=== PATIENT | female | born 1965 | race Caucasian/White ===

== ENCOUNTER → 2016-08-19 | Outpatient (CLI) | payer BC ==
--- NOTE | 2016-08-20 09:40 | MM ---
Reason for exam: screening (asymptomatic). Last mammogram was performed 2 years ago. History: Patient had first child at age 31. Physical Findings: A clinical breast exam by your physician is recommended on an annual basis and results should be correlated with mammographic findings. MG Screening Mammo w CAD Bilateral CC and MLO view(s) were taken. Prior study comparison: August 17, 2014, bilateral MG screening mammo w CAD. The breast tissue is heterogeneously dense. This may lower the sensitivity of mammography. There is no discrete abnormality. ASSESSMENT: Negative, BI-RAD 1 RECOMMENDATION: Routine screening mammogram of both breasts in 1 year.
== END | disposition home or self-care (01) ==
LOC: RADMAMWWP 09:56
PROVIDERS: ATTEND Family Medicine
DX: Z12.31 Encounter for screening mammogram for malignant neoplasm of breast (principal)

== ENCOUNTER → 2017-03-18 | Outpatient (CLI) | payer BC ==
--- NOTE | 2017-03-18 21:33 | MR ---
EXAMINATION TYPE: MR knee LT wo con DATE OF EXAM: 03/18/2017 COMPARISON: NONE HISTORY: 52 year-old female left knee pain and swelling TECHNIQUE: Multiplanar, multisequence imaging of the left knee is performed without IV contrast. FINDINGS: The ACL, PCL, MCL, and LCL complex are intact. Medial meniscus is intact. Mild diffuse thinning of medial compartment articular cartilage volume tho ugh a focal severe cartilage loss along the posterior weightbearing aspect of the medial femoral cond yle measuring approximately 7 mm AP dimension, sagittal image 20. There is underlying focal bone sharath ow edema. The lateral meniscus is intact. There is mild diffuse thinning of lateral compartment articular carti david volume. Moderate irregular cartilage fissuring along the patellar facets. Extensor mechanism is intact. Nonspecific mild anterior cutaneous soft tissue swelling. Trace knee joint effusion. No significant Montes's cyst. Normal popliteal artery anatomy and muscle bulk. No suspicious bone marrow replacement. IMPRESSION: 1. Focal severe cartilage defect measuring 7 mm AP along the posterior weightbearing aspect of the me dial femoral condyle with underlying reactive marrow signal changes. 2. Otherwise, there is mild diffuse thinning of bicompartmental articular cartilage volume. 3. Moderate irregular cartilage fissuring along the patellar facets.
== END | disposition home or self-care (01) ==
LOC: RADMRIMAIN 17:02
PROVIDERS: ATTEND Orthopaedic Surgery
DX: M94.8X6 Other specified disorders of cartilage, lower leg (principal); M25.562 Pain in left knee

== ENCOUNTER → 2018-06-19 | Outpatient (CLI) | payer BC ==
--- NOTE | 2018-06-23 07:48 | MM ---
Reason for exam: screening (asymptomatic). Last mammogram was performed 1 year and 10 months ago. History: Patient had first child at age 31. Physical Findings: A clinical breast exam by your physician is recommended on an annual basis and results should be correlated with mammographic findings. MG Screening Mammo w CAD Bilateral CC and MLO view(s) were taken. XCCL view(s) were taken of the right breast. Prior study comparison: August 19, 2016, bilateral MG screening mammo w CAD. August 17, 2014, bilateral MG screening mammo w CAD. The breast tissue is heterogeneously dense. This may lower the sensitivity of mammography. Finding: There is an enlarging 5 mm circumscribed round mass located 6 cm from the nipple in the upper outer quadrant of the right breast. New finding since August 17, 2014. ASSESSMENT: Incomplete: need additional imaging evaluation, BI-RAD 0 RECOMMENDATION: Ultrasound of the right breast. [facility] will attempt to contact patient to return for ultrasound.
== END | disposition home or self-care (01) ==
LOC: RADMAMWWP 13:04
PROVIDERS: ATTEND Family Medicine
DX: Z12.31 Encounter for screening mammogram for malignant neoplasm of breast (principal)
CPT/HCPCS: 77067

== ENCOUNTER → 2018-07-07 | Outpatient (CLI) | payer BC ==
--- NOTE | 2018-07-08 08:15 | USB ---
Reason for exam: additional evaluation requested from abnormal screening. History: Patient had first child at age 31. Physical Findings: Nurse Summary: right breast 12 o'clock palpable 0.5 x 0.5cm, tender, movable (nurse ts). US Breast Workup Limited RT Right complete breast ultrasound includes all four quadrants, the retroareolar region and axilla. Finding demonstrates a 0.5 x 0.4 x 0.4cm cystic cluster at 9 o'clock. These results were verbally communicated with the patient and result sheet given to the patient on 07/07/18. ASSESSMENT: Benign, BI-RAD 2 RECOMMENDATION: Return to routine screening mammogram schedule for both breasts.
== END | disposition home or self-care (01) ==
LOC: RADUSWWP 14:46
PROVIDERS: ATTEND Family Medicine
DX: R92.8 Other abnormal and inconclusive findings on diagnostic imaging of breast (principal)

== ENCOUNTER 2018-12-09 10:11 | Day surgery (SDC) | payer BC ==
[2018-12-08 08:36] VITALS: BMI 28.3
[~2018-12-09 10:11] MED LIST: LACTATED RINGERS 1,000 ML IV SCH; LIDOCAINE 1% 20 ML VIAL (10MG/ML) FOR IV START INTRADERMA PRN
[2018-12-09 10:42] VITALS: RESP 16; TEMP 97.6
[2018-12-09] MEDS ORDERED: PROPOFOL 10 MG/ML 20 ML VIAL IV ONE (11:38)
--- NOTE | 2018-12-09 11:55 | P.PCN ---
Date of Procedure: 12/09/18 Procedure(s) Performed: BRIEF HISTORY: Patient is a 53-year-old pleasant female, scheduled for an elective colonoscopy as a part of evaluation of positive cologuard. PROCEDURE PERFORMED: Colonoscopy. PREOPERATIVE DIAGNOSIS: Positive cologuard. IV sedation per Anesthesia. PROCEDURE: After informed consent was obtained, the patient, was brought into the endoscopy unit. IV sedation was administered by Anesthesia under continuous monitoring. Digital rectal examination was normal. Initially the Olympus CF-160 flexible video colonoscope was then inserted in the rectum, gradually advanced into the cecum without any difficulty. Careful examination was performed as the scope was gradually being withdrawn. Ileocecal valve and the appendiceal orifice were visualized and appeared normal. Prep was excellent. Mucosa of the cecum, ascending colon, transverse colon, descending colon, sigmoid colon, and rectum appeared normal. Scattered diverticulosis seen. Retroflexion was performed in the rectum and no lesions were seen. The patient tolerated the procedure well. IMPRESSION: Normal-appearing colon from rectum to cecum with no evidence of colorectal neoplasia . Scattered diverticulosis. RECOMMENDATIONS: Findings of this examination were discussed with the patient as well as her family. She was advised to have a repeat screening colonoscopy in .
[2018-12-09 12:20] VITALS: BP 119/80; PULSE 61
== END 2018-12-09 13:16 | disposition home or self-care (01) ==
LOC: ORWHC2ENDO 10:11
PROVIDERS: ATTEND Internal Medicine Gastroenterology
DX: R19.5 Other fecal abnormalities (principal); K57.90 Diverticulosis of intestine, part unspecified, without perforation or abscess without bleeding; E66.9 Obesity, unspecified; Z68.28 Body mass index [BMI] 28.0-28.9, adult
CPT/HCPCS: 81025; 45378; J2704